=== PATIENT | male | born 1965 | race Caucasian/White ===

== ENCOUNTER 2019-11-30 11:42 | Outpatient (CLI) | payer BC, SELFPAY ==
--- NOTE | ~2019-11-30 | XR_ITS ---
EXAMINATION:XR_CERV2-3V_CR DATE: 11/30/2019 12:14 INDICATION: Neck pain TECHNIQUE: AP, lateral, lateral swimmers and odontoid views of the cervical spine are provided. COMPARISON: None FINDINGS: There are 2 mm of retrolisthesis of C3 on C4. The odontoid is intact. No fracture is identi fied. The vertebral body heights are maintained. There is moderate loss of intervertebral disc space height from C3-4 through C7-T1. There is moderate multilevel facet and uncovertebral joint osteoarthr itis. Prevertebral soft tissues are normal. IMPRESSION: 1. Moderate cervical spondylosis without acute findings. Reviewed, dictated and finalized at location A.
== END 2019-11-30 11:43 | disposition home or self-care (01) ==
LOC: ANHIMG 11:52
PROVIDERS: PCP Internal Medicine; Visit Provider Internal Medicine
DX: M47.892 Other spondylosis, cervical region (principal)
CPT/HCPCS: 72040

== ENCOUNTER 2019-12-19 16:48 | Outpatient (CLI) | payer BC, SELFPAY ==
--- NOTE | ~2019-12-19 | MR_ITS ---
EXAMINATION: MR cervical spine wo con DATE: 12/19/2019 17:42 INDICATION: Cervical radiculopathy. TECHNIQUE: Magnetic resonance imaging (MRI) of the cervical spine was performed without intravenous c ontrast. Sequences included sagittal T2-weighted FSE, sagittal STIR FSE, sagittal T1-weighted FSE, ax ial MERGE, and axial T2-weighted FSE. COMPARISON: None FINDINGS: There is kyphosis of cervical spine. There is a chronic compression fracture of T3. There i s mildly decreased disc height from C3-C4 through C5-C6 and moderately decreased disc height at C6-C7 . The spinal cord signal intensity is normal. The following disc levels are specifically discussed: C2-C3: The disc does not extend beyond the endplate margin. There is moderate left uncovertebral join t osteoarthritis. There is mild right and severe left facet joint osteoarthritis. There is moderate l eft neural foraminal stenosis. There is no central canal stenosis. C3-C4: The disc is bulging. There is severe bilateral uncovertebral joint osteoarthritis. There is mi ld bilateral facet joint osteoarthritis. There is moderate bilateral neural foraminal stenosis. There is mild central canal stenosis. C4-C5: The disc is bulging. There is severe bilateral uncovertebral joint osteoarthritis. There is mi ld bilateral facet joint osteoarthritis. There is moderate bilateral neural foraminal stenosis. There is mild central canal stenosis with ventral indentation of spinal cord. C5-C6: The disc is bulging. There is severe bilateral uncovertebral joint osteoarthritis. There is mi ld bilateral facet joint osteoarthritis. There is moderate right and severe left neural foraminal nahun nosis. There is mild central canal stenosis. C6-C7: The disc is bulging. There is severe bilateral uncovertebral joint osteoarthritis. There is mi ld bilateral facet joint osteoarthritis. There is moderate bilateral neural foraminal stenosis. There is mild central canal stenosis. C7-T1: The disc does not extend beyond the endplate margin. There is no uncovertebral joint osteoarth ritis. There is severe bilateral facet joint osteoarthritis. There is mild bilateral neural foraminal stenosis. There is no central canal stenosis. IMPRESSION: 1. Severe cervical spondylosis. Reviewed, dictated and finalized at location A.
== END 2019-12-19 16:49 | disposition home or self-care (01) ==
PROVIDERS: PCP Internal Medicine; Visit Provider Nurse Practitioner Adult Health
DX: M47.22 Other spondylosis with radiculopathy, cervical region (principal)
CPT/HCPCS: 72141

== ENCOUNTER → 2020-02-09 13:03 | Outpatient (CLI) | payer BC, SELFPAY ==
--- NOTE | ~2020-02-09 | XR_ITS ---
XR hand RT min 3V, XR wrist RT min 3V 02/09/2020 13:35 Indication: Right hand and wrist pain Procedure: 3 views right hand and 4 views right wrist Comparison: No prior studies for comparison. Findings: There is osteoarthritis of the radiocarpal, triscaphe, first carpometacarpal, first CMC naty nts. No erosive changes. No acute fracture or traumatic malalignment. No focal soft tissue abnormalit y. No radiopaque foreign bodies. Impression: 1: Mild-moderate polyarticular osteoarthritis. Reviewed, dictated and finalized at location A. Impression: 1: Mild-moderate polyarticular osteoarthritis. Impression: 1: Mild-moderate polyarticular osteoarthritis.
--- NOTE | ~2020-02-09 | XR_ITS ---
XR finger 1st RT min 2V DATE: 02/09/2020 13:35 INDICATION: Right hand pain TECHNIQUE: 3 views of right first digit COMPARISON: None FINDINGS: There is osteoarthritis at the first carpometacarpal joint. No fracture, dislocation, perio steal reaction or bone destruction is evident. IMPRESSION: Osteoarthritis at the first carpometacarpal joint Reviewed, dictated and finalized at location A.
== END ==
PROVIDERS: Visit Provider Nurse Practitioner Adult Health
DX: M19.041 Primary osteoarthritis, right hand (principal); M19.031 Primary osteoarthritis, right wrist
CPT/HCPCS: 73110; 73130; 73140

== ENCOUNTER 2022-03-23 13:01 | Emergency (ER) | payer BC, SELFPAY ==
--- NOTE | ~2022-03-23 | CT_ITS ---
EXAMINATION: CT BRAIN W/O DATE: 03/23/2022 13:42 INDICATION: Head injury. Loss of consciousness. TECHNIQUE: Computed tomography (CT) of the head was performed without intravenous contrast. The dose- length product was 605.33 mGy-cm. Automated exposure control and iterative reconstruction technique were employed. COMPARISON: No prior studies for comparison. FINDINGS: Normal brain parenchymal volume for age. Normal sanford-white differentiation. No acute intrac ranial hemorrhage, infarction, mass or mass effect. No ventriculomegaly or midline shift. Midline sagittal images demonstrate a normal corpus callosum, c raniovertebral junction and sella turcica. Basilar cisterns are patent. Paranasal sinuses and mastoids are pneumatized. No depressed skull fractures. IMPRESSION: 1. No acute intracranial abnormality. Reviewed, dictated and finalized at location B.
--- NOTE | ~2022-03-23 | CT_ITS ---
EXAMINATION: CT cervical spine wo con DATE: 03/23/2022 13:42 INDICATION: Head injury. Neck pain. TECHNIQUE: Computed tomography (CT) of the cervical spine was performed without intravenous contrast. The dose-length product was 449 mGy-cm. Automated exposure control and iterative reconstruction tech nique were employed. COMPARISON: None FINDINGS: Straightening of cervical lordosis. There is degenerative disc disease at C3-4 to C6-7. Odo ntoid process is normal. There is multilevel uncinate and facet hypertrophy. Lung apices are normal. No acute fracture or traumatic malalignment. No evidence for perched facet. Craniovertebral junction is normal. IMPRESSION: 1. No acute fracture. 2: Severe cervical spondylosis. Reviewed, dictated and finalized at location B.
[2022-03-23 13:10] VITALS: BP 146/84; PULSE 73; RESP 16; TEMP 37; O2SAT 98
--- NOTE | 2022-03-23 13:15 | PC.NURSE ---
COLLEEN Gimenez notified of patient's presentation and signs and symptoms. Per Ammy via verbal order read-back, order CT brain.
--- NOTE | 2022-03-23 13:35 | ED.HEATRA ---
HPI - Head Injury General Chief complaint: Head Injury Stated complaint: head injury Time Seen by Provider: 03/23/22 13:23 History of Present Illness HPI Narrative: Patient is a 56-year-old male here for evaluation after head injury today. Patient states that he was bent over under his workbench when an object fell off of the workbench onto the back of his head. He denies loss of consciousness. States that he has had a posterior head pain since the accident. Denies changes to his vision, nausea or vomiting, seizure-like activity, blood thinner use. Related Data Allergies Allergy/AdvReac Type Severity Reaction Status Date / Time No Known Allergies Allergy Unverified 05/13/18 07:16 Review of Systems Review of Systems: Gen: Denies fevers or chills Eyes: Denies eye pain or visual change ENT: Denies congestion Respiratory: Denies shortness of breath or cough CV: Denies chest pain or palpitations GI: Denies abdominal pain nausea, emesis or diarrhea : denies burning, urgency, frequency or hematuria Musculoskeletal: Denies back pain or muscle pain Neuro: Reports posterior head pain. Denies numbness, tingling, weakness or focal weakness Skin: Denies rash Except as documented, all other systems reviewed and negative PMFSH Social History Social History (Updated 08/12/20 @ 15:02 by Ria Randhawa MA) Years smoked: 4 Smoking status: Current every day smoker Tobacco type: e-cigarettes/vaping Alcohol intake: current Substance use: never Exam Narrative: APPEARANCE: Well appearing, no pain in distress, well-nourished. Head: No obvious trauma to head. EYES: PERRLA/EOMI, conjunctivae clear NOSE: No nasal drainage EARS: External ear normal in appearance THROAT: Oropharynx is clear. Mucous membranes are moist. NECK: Tender to palpation along upper cervical spine. Supple. No adenopathy, no masses. RESPIRATORY: Airway patent, respirations nonlabored. Clear to auscultation bilaterally, no rales, rhonchi, wheezing. CARDIOVASCULAR: Regular rate and rhythm without murmurs, rubs, or gallops. ABDOMINAL: Normoactive bowel sounds. Soft, nontender, nondistended. No rebound tenderness or guarding. MUSCULOSKELETAL: Extremities are warm and well-perfused. Moves all extremities well. No edema. NEURO: Cranial nerves II through XII intact. Normal speech. No focal neurologic deficits. SKIN: Skin is warm and dry. No rashes. PSYCHIATRIC: Normal affect/mood. Course Vital Signs Vital signs: Vital Signs Temperature 98.6 F 03/23/22 13:10 Pulse Rate 73 03/23/22 13:10 Respiratory Rate 16 03/23/22 13:10 Blood Pressure 146/84 H 03/23/22 13:10 Pulse Oximetry 98 03/23/22 13:10 Oxygen Delivery Room Air 03/23/22 13:10 Temperature 98.6 F 03/23/22 13:10 Pulse Rate 73 03/23/22 13:10 Respiratory Rate 16 03/23/22 13:10 Blood Pressure 146/84 H 03/23/22 13:10 Pulse Oximetry 98 03/23/22 13:10 Oxygen Delivery Room Air 03/23/22 13:20 MDM - Head Injury MDM Narrative Medical decision making narrative: 56-year-old male here for evaluation of posterior headache after getting hit in the head with an object earlier today. No loss of consciousness. Work-up in the ED is reassuring, his head CT and C-spine CT are without acute findings. He does have cervical spondylosis which I informed him of when he was aware of. Feel patient is appropriate for discharge at this time as he has not had no altered mental status, he is not on blood thinners, he has not had seizure-like activity. He will be discharged home to follow-up with his primary care provider. Discharge Plan Discharge Clinical Impression: Concussion Patient Disposition: Home, Self-Care Condition: Stable Instructions: Antibiotic Form, Head Injury (ED) Additional Instructions: Your head CT and C-spine CT are reassuring today. It is possible you are suffering from a concussion. Follow-up with your primary care provider next week. Please retu
--- NOTE | 2022-03-23 13:45 | PC.NURSE ---
Patient off unit to CT.
== END 2022-03-23 14:41 | disposition home or self-care (01) ==
PROVIDERS: Emergency Provider Emergency Medicine; PCP Internal Medicine
DX: S06.0X0A Concussion without loss of consciousness, initial encounter (principal); F17.290 Nicotine dependence, other tobacco product, uncomplicated; W20.8XXA Other cause of strike by thrown, projected or falling object, initial encounter
CPT/HCPCS: 70450; 72125; 99284

== ENCOUNTER → 2022-12-11 10:34 | Outpatient (CLI) | payer BC, SELFPAY ==
--- NOTE | ~2022-12-11 | XR_ITS ---
EXAMINATION: XR shoulder RT min 2V INDICATION: Right shoulder pain TECHNIQUE: Four views of the right shoulder are submitted. COMPARISON: None FINDINGS: Normal alignment. No fracture. There is moderate osteoarthritis of the glenohumeral and acr omioclavicular joints. Soft tissues are unremarkable. IMPRESSION: 1. Osteoarthritis without acute osseous abnormality. Reviewed, dictated and finalized at location B.
== END ==
PROVIDERS: PCP Family Medicine; Visit Provider Family Medicine
DX: M19.011 Primary osteoarthritis, right shoulder (principal)
CPT/HCPCS: 73030

== ENCOUNTER 2022-12-11 10:45 | Outpatient (CLI) | payer BC, SELFPAY ==
[2022-12-11 19:40] LABS: Alanine Aminotransferase 30 U/L (6-50); Albumin Level 4.5 g/dL (3.5-5.1); Alkaline Phosphatase 88 U/L (38-126); Anion Gap 5 mmol/L (8-16); Aspartate Amino Transferase 36 U/L (17-59); Bilirubin,Total 0.8 mg/dL (0.2-1.3); Blood Urea Nitrogen 20 mg/dL (9-20); Calcium 9.3 mg/dL (8.4-10.2); Carbon Dioxide 27 mmol/L (22-30); Chloride 108 mmol/L (98-107); Cholesterol 319 mg/dL (0-200); Estimated Glomerular Filt Rate > 60; Glucose 104 mg/dL (65-110); HDL Direct 45 mg/dL; Potassium 4.1 mmol/L (3.4-5.0); Sodium 140 mmol/L (137-145); Triglycerides 257 mg/dL (<150)
[2022-12-11 19:51] LABS: LDL Cholesterol Direct 182 mg/dL
== END 2022-12-11 10:46 | disposition home or self-care (01) ==
LOC: ANHGOSHLAB 10:47
PROVIDERS: PCP Family Medicine; Visit Provider Family Medicine
DX: Z13.220 Encounter for screening for lipoid disorders (principal); Z13.228 Encounter for screening for other metabolic disorders; Z12.5 Encounter for screening for malignant neoplasm of prostate
CPT/HCPCS: 36415; 80053; 80061; 84153; G0103

== ENCOUNTER → 2023-02-26 16:05 | Outpatient (CLI) | payer BC, SELFPAY ==
--- NOTE | ~2023-02-26 | XR_ITS ---
EXAMINATION: XR shoulder LT min 2V INDICATION: Left shoulder pain TECHNIQUE: Four views of the left shoulder are submitted. COMPARISON: None FINDINGS: Normal alignment. No fracture. There is moderate osteoarthritis of the acromioclavicular an d glenohumeral joints. Soft tissues are unremarkable. IMPRESSION: 1. No acute osseous abnormality. Reviewed, dictated and finalized at location F.
== END ==
PROVIDERS: PCP Family Medicine; Visit Provider Family Medicine
DX: M25.512 Pain in left shoulder (principal)
CPT/HCPCS: 73030

== ENCOUNTER → 2023-03-18 12:35 | Outpatient (CLI) | payer BC, SELFPAY ==
--- NOTE | ~2023-03-18 | MR_ITS ---
MRI of the right shoulder Technique: Axial proton-density fat-sat images, coronal proton density fat-sat and T2 fat-sat images, and sagittal T1-weighted and T2 fat-sat images were acquired. Clinical History: Pain Findings: There is severe AC joint degenerative change. Coracoclavicular, coracoacromial, and coracoh umeral ligaments appear to remain intact. There is evidence of prior rotator cuff repair surgery, with suture anchors at the humeral head/great er tuberosity. Infraspinatus tendon is intact, without partial or full-thickness tear. There is focal probable full-thickness versus high-grade articular surface partial tear at the central portion of t he supraspinatus tendon, with the area of tear measuring 9 x 9 mm. Subscapularis tendon is intact. Te ndon of the long head of the biceps is intact. There is probable mild degenerative attenuation of the superior labrum without discrete, detached lab ral tear. No significant degenerative change or effusion of the glenohumeral joint. Inferior glenohumeral ligam ent is intact. There is minimal fluid in the subacromial/subdeltoid bursa. No muscle atrophy or edema . Impression: Evidence of prior rotator cuff repair surgery. 9 x 9 mm area of recurrent high-grade partial versus f ull-thickness tearing at the central portion of the supraspinatus tendon. Mild degenerative attenuation of the superior labrum. Advanced degenerative change of the AC joint. Reviewed, dictated and finalized at [facility]. Impression: Evidence of prior rotator cuff repair surgery. 9 x 9 mm area of recurrent high- grade partial versus full-thickness tearing at the central portion of the supra spinatus tendon. Mild degenerative attenuation of the superior labrum. Advanced degenerative change of the AC joint.
== END ==
PROVIDERS: PCP Family Medicine; Visit Provider Orthopaedic Surgery
DX: M19.011 Primary osteoarthritis, right shoulder (principal)
CPT/HCPCS: 73221

== ENCOUNTER 2023-06-11 12:30 | Outpatient (CLI) | payer BC, SELFPAY ==
[2023-06-11 19:49] LABS: Cholesterol 193 mg/dL (0-200); HDL Direct 46 mg/dL; Triglycerides 154 mg/dL (<150)
[2023-06-11 20:00] LABS: LDL Cholesterol Direct 104 mg/dL
== END 2023-06-11 12:31 | disposition home or self-care (01) ==
LOC: ANHGOSHLAB 12:33
PROVIDERS: PCP Family Medicine; Visit Provider Family Medicine
DX: E78.2 Mixed hyperlipidemia (principal)
CPT/HCPCS: 36415; 80061

== ENCOUNTER 2023-07-16 09:32 | Outpatient (CLI) | payer BC, SELFPAY ==
--- NOTE | 2023-07-16 10:04 | ECG_ITS ---
Measurements Intervals [place] Rate: 54 P: 47 [place]: 154 QRS: -9 QRSD: 92 T: 7 QT: 426 QTc: 407 Interpretive Statements SINUS BRADYCARDIA CONSIDER PREVIOUS INFERIOR WALL DE ABNORMAL ECG NO PREVIOUS ECG AVAILABLE FOR COMPARISON Electronically Signed On 07-16-2023 15:20:54 MACHINE BUFFER by Simba Negrete M.D.
[2023-07-16 10:18] LABS: Hematocrit 39.7 % (42.0-52.0); Hemoglobin 13.1 g/dL (14.0-18.0); Mean Corpuscular Volume 87.8 fl (80-100); Mean Platelet Volume 9.9 fl (7.4-10.4); Platelet Count Result 152 k/mm3 (150-375); Red Blood Count 4.52 M/mm3 (4.6-6.20); Red Cell Distribution Width 12.5 % (11.5-14.5); White Blood Count 6.6 K/mm3 (4.5-10.0)
[2023-07-16 10:41] LABS: Alanine Aminotransferase 29 U/L (6-50); Albumin Level 3.9 g/dL (3.5-5.1); Alkaline Phosphatase 87 U/L (38-126); Anion Gap 4 mmol/L (8-16); Aspartate Amino Transferase 36 U/L (17-59); Bilirubin,Total 0.7 mg/dL (0.2-1.3); Blood Urea Nitrogen 22 mg/dL (9-20); Calcium 8.9 mg/dL (8.4-10.2); Carbon Dioxide 28 mmol/L (22-30); Chloride 110 mmol/L (98-107); Estimated Glomerular Filt Rate > 60; Glucose 134 mg/dL (65-110); Potassium 3.6 mmol/L (3.4-5.0); Sodium 142 mmol/L (137-145)
== END 2023-07-16 09:33 | disposition home or self-care (01) ==
PROVIDERS: PCP Family Medicine
DX: M75.101 Unspecified rotator cuff tear or rupture of right shoulder, not specified as traumatic (principal); R94.31 Abnormal electrocardiogram [ECG] [EKG]
CPT/HCPCS: 36415; 80053; 85027; 93005

== ENCOUNTER 2023-09-26 15:48 | Observation (INO) | payer BC, SELFPAY ==
--- NOTE | ~2023-09-26 | CT_ITS ---
EXAMINATION: CT brain wo con DATE: 09/26/2023 16:41 INDICATION: Dizziness. TECHNIQUE: Computed tomography (CT) of the head was performed without intravenous contrast. The mA wa s adjusted according to patient size. Iterative reconstruction technique was employed. The dose-lengt h product was 681.00 mGy-cm. COMPARISON: Head CT 03/23/2022 FINDINGS: There is no intracranial hemorrhage, acute infarction, or abnormal intracranial mass lesion . The ventricles are normal in size. There is mild mucosal thickening in the paranasal sinuses. The o rbits are normal. The mastoid air cells are normal. IMPRESSION: 1. Normal brain. Reviewed, dictated and finalized at location E. IMPRESSION: 1. Normal brain.
--- NOTE | ~2023-09-26 | MR_ITS ---
MRI of the brain Clinical History: Vertigo Technique: Axial and sagittal T1-weighted images were acquired. These were followed by axial T2-weigh karolina, diffusion weighted, gradient, and FLAIR images. Following intravenous administration of 15 cc Mu ltiHance gadolinium, T1-weighted fat-sat imaging was performed in the axial and coronal planes. Findings: There is no acute infarct, intracranial hemorrhage or mass lesion. There are mild chronic m icrovascular ischemic changes in the periventricular white matter bilaterally. Ventricles and subarachnoid spaces are unremarkable. Orbits are unremarkable. Paranasal sinuses and m astoid air cells are clear. Major intracranial flow voids are intact. Sagittal midline structures are intact. No abnormal postcontrast enhancement identified. IMPRESSION: Mild chronic microvascular ischemic changes, otherwise unremarkable exam. Reviewed, dictated and finalized at location .
[2023-09-26 15:49] VITALS: BP 134/80; PULSE 64; RESP 18; TEMP 36.4; O2SAT 100
--- NOTE | 2023-09-26 15:52 | ECG_ITS ---
SEE SCANNED COPY FOR CONFIRMED REPORT MTDD
--- NOTE | 2023-09-26 16:02 | ED.DIZZY ---
HPI - Dizziness General Chief Complaint: Dizziness Stated Complaint: n/v/ Time Seen by Provider: 09/26/23 15:55 Source: patient Mode of arrival: ambulatory Limitations: no limitations History of Present Illness HPI Narrative: 57 years old white male with history of hyperlipidemia, workup this morning, yawning and stretching in bed suddenly everything started spinning, worse with any movement, slightly better lying down flat. Associated with nausea and vomiting at least twice prior to arrival by private car. He denies any fever, chills, chest pain, shortness of breath, headache or focal neuro deficit. His mom have history of vertigo Related Data Allergies Allergy/AdvReac Type Severity Reaction Status Date / Time No Known Allergies Allergy Verified 06/15/23 15:27 Review of Systems Review of Systems: All systems reviewed & are unremarkable except as noted in HPI and below PMFSH Surgical History Surgical History History of carpal tunnel surgery of right wrist History of hand surgery right side trigger ring finger History of shoulder surgery right side- scope & rtc repair Social History Social History Years smoked: 4 Smoking status: Former smoker Tobacco type: cigarettes and e-cigarettes/vaping Alcohol intake: current Alcohol use details: socially Substance use: never Do You Feel Safe in your Home?: Yes Lack of Transportation: No Lack of Food: Never True Current Housing: I Have Housing Concerned About Future Housing: No Difficulty Paying Gas/Electric Bills: No Difficulty Paying for Meds: No Currently Unemployed: No Education: High School Diploma/GED Difficulty w/ Childcare or Family Care: No Living arrangements: with family Occupation/Education: occupation 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 Musculoskeletal: Normal range of motion, nontender back Neurologic: Alert and oriented ?3, GROUNDS KEEPER is normal as tested, no gross motor deficit Course Vital Signs Vital signs: Vital Signs Temperature 36.4 C L 09/26/23 15:49 Pulse Rate 64 09/26/23 15:49 Respiratory Rate 18 09/26/23 15:49 Blood Pressure 134/80 09/26/23 15:49 Pulse Oximetry 100 09/26/23 15:49 Oxygen Delivery Room Air 09/26/23 15:49 Temperature 36.4 C L 09/26/23 15:49 Pulse Rate 59 L 09/26/23 16:09 Respiratory Rate 18 09/26/23 15:49 Blood Pressure 134/80 09/26/23 15:49 Pulse Oximetry 100 09/26/23 15:49 Oxygen Delivery Room Air 09/26/23 15:49 MDM - Dizziness MDM Narrative Medical decision making narrative: PATIENT PRESENTS WITH VERTIGO ASSOCIATED WITH NAUSEA AND VOMITING. DIFFERENTIAL DIAGNOSIS BENIGN POSITIONAL VERTIGO, VERSUS CENTRAL VERTIGO. BLOOD WORKUP SHOWED SIGNIFICANT ABNORMALITY EXCEPT POTASSIUM IS 3.3, PATIENT RECEIVED 40 MEQ P.O. PRIOR TO ADMISSION CT SCAN OF THE HEAD AND CHEST X-RAY SHOWED NO ACUTE ABNORMALITY, EKG ON ARRIVAL SHOWED NORMAL SINUS RHYTHM. IN THE ED PATIENT RECEIVED 5 MG OF VALIUM IV, 8 MG OF ZOFRAN IV AND 25 MG OF ANTIVERT P.O. W
[2023-09-26 16:09] VITALS: PULSE 59
[2023-09-26 16:13] LABS: Basophils Percent Auto 0.3 % (0.2-1.2); Eosinophils Percent Auto 0.6 % (0-4.4); Hematocrit 43.2 % (42.0-52.0); Hemoglobin 14.6 g/dL (14.0-18.0); Immature Granulocyte Absolute 0.02 K/mm3 (0.00-0.031); Immature Granulocyte Percent A 0.3 % (0-0.5); Lymphocytes Absolute Auto 2.05 K/mm3 (0.9-3.2); Lymphocytes Percent Auto 28.8 % (18.3-44.2); Mean Corpuscular HGB Conc 33.8 g/dl (32-36); Mean Corpuscular Hemoglobin 28.4 pg (26-34); Mean Platelet Volume 10.2 fl (7.4-10.4); Monocytes Absolute Auto 0.5 K/mm3 (0.1-0.6); Monocytes Percent Auto 7.6 % (2.6-8.5); Neutrophils Absolute Auto 4.5 K/mm3 (1.3-6.7); Neutrophils Percent Auto 62.4 % (45.5-73.1); Platelet Count Result 177 k/mm3 (150-375); Red Blood Count 5.14 M/mm3 (4.6-6.20); Red Cell Distribution Width 13.1 % (11.5-14.5); White Blood Count 7.1 K/mm3 (4.5-10.0)
[2023-09-26] MEDS: ONDANSETRON INJ 4 MG/2 ML VIAL 8 MG IV PUSH (16:13)
[2023-09-26] MEDS: diazePAM INJ (*CRX) 10 MG/2 ML SYRINGE 5 MG IV PUSH (16:14)
[2023-09-26] MEDS: MECLIZINE HCL 25 MG TABLET PO (16:14)
[2023-09-26 16:23] LABS: INR 0.9; Prothrombin Time 12.7 Seconds (11.1-14.7)
[2023-09-26 16:25] LABS: Alanine Aminotransferase 25 U/L (6-50); Albumin Level 4.7 g/dL (3.5-5.1); Alkaline Phosphatase 96 U/L (38-126); Anion Gap 12 mmol/L (4-12); Aspartate Amino Transferase 28 U/L (17-59); Bilirubin,Total 1.1 mg/dL (0.2-1.3); Blood Urea Nitrogen 25 mg/dL (9-20); Calcium 9.8 mg/dL (8.4-10.2); Carbon Dioxide 21 mmol/L (22-30); Chloride 106 mmol/L (98-107); Estimated CRCL calculation 84 ml/min; Estimated Glomerular Filt Rate > 60; Glucose 151 mg/dL (65-110); Potassium 3.3 mmol/L (3.4-5.0); Sodium 139 mmol/L (137-145)
[2023-09-26 16:37] LABS: Troponin I < 0.012 ng/mL (0.000-0.034)
[2023-09-26 17:22] VITALS: BP 117/80; PULSE 63; RESP 14; O2SAT 99
[2023-09-26] MEDS: POTASSIUM CHLORIDE 20 MEQ PACKET (FOR LIQUID) 40 MEQ PO (17:34)
--- NOTE | 2023-09-26 18:21 | PM.IMHP ---
H&P: HPI History of Present Illness Date/Time: 09/26/23 18:20 Chief Complaint: Dizzy. Narrative: This is a very pleasant 57-year-old with hyperlipidemia who presented to the emergency department via private vehicle for evaluation of dizziness. The patient provides the following history. He was in his usual state of health when he got up this morning. He took the dogs out to the bathroom and went back to bed to lay down for a bit longer. While stretching out in bed he suddenly developed severe vertigo associated with nausea and dry heaves. The vertigo was so bad that he could barely even open his eyes and was unable to walk in a steady fashion. His symptoms are worse with opening his eyes and any head movement, especially to the left. Symptoms did not resolve with time and he came in for evaluation. He denies headache, facial droop, difficulty speaking and swallowing, focal weakness, paresthesias, tinnitus, ear pain, aural fullness, and palpitations. In the ED: Vital signs were stable on arrival. Labs were significant for a potassium 3.3, BUN 25, creatinine 0.80, glucose 151. Brain CT showed no acute findings. He was given p.o. meclizine and IV diazepam which unfortunately did not help his symptoms much. He is being admitted in this setting for further treatment and evaluation. Review of Systems Review of Systems: 12 systems were reviewed and are negative except for as per HPI. [facility] Past Medical History Medical History Hyperlipidemia Surgical History Surgical History History of carpal tunnel surgery of right wrist History of hand surgery right side trigger ring finger History of shoulder surgery right side- scope & rtc repair Social History Social History (Updated 09/26/23 @ 21:39 by Snow Valencia PA-C) Social History: Surrogate medical decision maker: Aleena Arshad, spouse. Code status: Full code. Years smoked: 4 Smoking status: Former smoker Tobacco type: cigarettes and e-cigarettes/vaping Alcohol intake: former Alcohol use details: Social alcohol use in moderation. Substance use: never Substance use type: does not use Do You Feel Safe in your Home?: Yes Lack of Transportation: No Lack of Food: Never True Current Housing: I Have Housing Concerned About Future Housing: No Difficulty Paying Gas/Electric Bills: No Difficulty Paying for Meds: No Currently Unemployed: No Education: High School Diploma/GED Difficulty w/ Childcare or Family Care: No Living arrangements: with family Additional living arrangements comments: Lives with spouse in [place]. 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 Spiritual care concerns: No Meds Home Medications and Allergies Home Medications Medication Instructions Recorded Confirmed Type rosuvastatin 40 mg tablet 40 mg PO DAILY #90 tabs 12/14/22 09/26/23 Rx Allergies Allergy/AdvReac Type Severity Reaction Status Date / Time No Known Allergies Allergy Verified 09/26/23 18:53 Vital Signs Vital Signs - 24 hr 09/26/23 15:49 09/26/23 16:09 Temperature 97.5 F L Pulse Rate 64 59 L Respiratory Rate 18 Blood Pressure 134/80 Pulse Oximetry 100 Oxygen Delivery Room Air Exam Narrative: General: Well-developed, nontoxic-appearing male in mild distress related to vertigo. Weight: 75.8 kg. BMI: 25.4. HEENT: Normocephalic, atraumatic. PERRL, EOMI. Sclera anicteric. Oral mucosa moist. Oropharynx clear. Neck: Supple. No carotid bruits. Respiratory: Lungs are clear to auscultation bilaterally. Cardiovascular: Regular rate and rhythm with S1-S2. Gastrointestinal: Abdomen is soft, nontender, and nondistended with positive bowel sounds. Skin: Warm and dry. No rash or lesions on limited exam. Extremities: No cy
[2023-09-26 18:36] VITALS: BP 121/86; PULSE 59; RESP 14; O2SAT 99
[2023-09-26 20:00] VITALS: PULSE 56
[2023-09-26 20:13] VITALS: BP 136/76; PULSE 60; RESP 16; TEMP 36.6; O2SAT 98
[2023-09-26 20:22] VITALS: BMI 25.4
[2023-09-26] MEDS: SODIUM CHLORIDE 0.9% IV 1,000 ML 100 ML IV CONT (22:30)
[2023-09-26] MEDS: diazePAM (*CRX) 5 MG TABLET PO (22:34)
[2023-09-27] VITALS (9 sets, daily range): BP systolic 115–134; BP diastolic 73–84; PULSE 57–82; RESP 14–17; TEMP 36.3–36.7; O2SAT 96–98
[2023-09-27] MEDS: POTASSIUM CHLORIDE 20 MEQ PACKET (FOR LIQUID) 40 MEQ PO (05:38)
[2023-09-27] MEDS: ACETAMINOPHEN 325 MG TABLET 650 MG PO ×2 (05:40→12:22)
[2023-09-27 06:11] LABS: Anion Gap 7 mmol/L (4-12); Blood Urea Nitrogen 17 mg/dL (9-20); Calcium 9.5 mg/dL (8.4-10.2); Carbon Dioxide 24 mmol/L (22-30); Chloride 109 mmol/L (98-107); Estimated CRCL calculation 84 ml/min; Estimated Glomerular Filt Rate > 60; Glucose 111 mg/dL (65-110); Magnesium 2.2 mg/dL (1.6-2.3); Potassium 4.1 mmol/L (3.4-5.0); Sodium 140 mmol/L (137-145)
[2023-09-27] MEDS: MECLIZINE HCL 25 MG TABLET PO ×2 (08:39→12:21)
[2023-09-27] MEDS: ROSUVASTATIN 10 MG TABLET 40 MG PO (08:39)
--- NOTE | 2023-09-27 12:48 | PM.IMPN ---
Progress Note: A&P Assessment and Plan (1) Vertigo: Code(s): R42 - Dizziness and giddiness Status: Acute (2) Hypokalemia: Code(s): E87.6 - Hypokalemia Status: Acute (3) Hyperlipidemia: Code(s): E78.5 - Hyperlipidemia, unspecified Status: Acute Plan The patient presented to the emergency department for evaluation of severe vertigo as detailed in HPI. Labs, imaging, EKG, and all reports were personally reviewed. The sudden onset and severity is most likely indicative of a peripheral vertigo such as benign prostatic positional vertigo. Diazepam and meclizine were of little benefit however. He is unable to stand without severe vertigo and retching and he is being admitted for supportive care and closer monitoring. Posterior stroke seems less likely with his with his main risk factor being hyperlipidemia. Consider brain MRI tomorrow if no significant improvement. PT consulted for vestibular therapy. His potassium is low and will be replaced and monitored. Continue statin and; LFTs within normal limits. The rest of his home medications will be reviewed and resumed as appropriate. Findings and treatment plan were discussed with the patient. Questions were solicited and answered to satisfaction. The patient's medical management will be taken over by the hospitalist team in a.m. Subjective Date/time seen: 09/27/23 12:48 Interval history: 57-year-old with hyperlipidemia who presented to the emergency department via private vehicle for evaluation of dizziness. The patient provides the following history. He was in his usual state of health when he got up this morning. He took the dogs out to the bathroom and went back to bed to lay down for a bit longer. While stretching out in bed he suddenly developed severe vertigo associated with nausea and dry heaves. The vertigo was so bad that he could barely even open his eyes and was unable to walk in a steady fashion. Exam Narrative: General: Well-developed, nontoxic-appearing male in mild distress related to vertigo. Weight: 75.8 kg. BMI: 25.4. HEENT: Normocephalic, atraumatic. PERRL, EOMI. Sclera anicteric. Oral mucosa moist. Oropharynx clear. Neck: Supple. No carotid bruits. Respiratory: Lungs are clear to auscultation bilaterally. Cardiovascular: Regular rate and rhythm with S1-S2. Gastrointestinal: Abdomen is soft, nontender, and nondistended with positive bowel sounds. Skin: Warm and dry. No rash or lesions on limited exam. Extremities: No cyanosis, clubbing, or edema. Radial and pedal pulses intact. Neurological: Alert and oriented. Cranial nerves 2-12 are grossly intact. Speech is clear. No facial asymmetry. No pronator drift. No appreciable nystagmus. Hand box tender and foot pushes equal bilaterally. Normal [id number]-[id number]. Gait not assessed. Psychiatric: Pleasant and cooperative with normal mood and affect. Judgment and insight intact. Objective Data Vital Signs Vital Signs: Vital Signs - 24 hr 09/26/23 15:49 09/26/23 16:09 09/26/23 18:36 Temperature 36.4 C L Pulse Rate 64 59 L 59 L Respiratory Rate 18 14 Blood Pressure 134/80 121/86 Pulse Oximetry 100 99 Oxygen Delivery Room Air 09/26/23 17:22 09/26/23 20:13 09/26/23 20:00 Temperature 36.6 C Pulse Rate 63 60 56 L Respiratory Rate 14 16 Blood Pressure 117/80 136/76 Pulse Oximetry 99 98 Oxygen Delivery 09/26/23 20:00 09/27/23 00:00 09/27/23 01:10 Temperature 36.7 C Pulse Rate 57 L 60 Respiratory Rate 14 Blood Pressure 115/75 Pulse Oximetry 97 Oxygen Delivery Room Air 09/27/23 04:00 09/27/23 05:44 09/27/23 08:40 Temperature 36.6 C Pulse Rate 57 L 69 Respiratory Rate 16 Blood Pressure 130/80 Pulse Oximetry 96 Oxygen Delivery Room Air 09/27/23 09:37 09/27/23 11:41 Temperature 36.3 C L Pulse Rate 74 Respiratory Rate 17 Blood Pressure 129/84 Pulse Oximetry 97 Oxygen Delivery Room Air Intake/Output Intake/Out
--- NOTE | 2023-09-27 13:03 | PM.DS ---
DS: Admitting Diagnosis Discharge Date 09/27/2023 Admitting Diagnosis Dizzy DS: Discharge Diagnosis Discharge Diagnosis (1) Vertigo: Code(s): R42 - Dizziness and giddiness Status: Acute Assessment and Plan: The patient presented to the emergency department for evaluation of severe vertigo as detailed in HPI. Labs, imaging, EKG, and all reports were personally reviewed. The sudden onset and severity is most likely indicative of a peripheral vertigo such as benign prostatic positional vertigo. Diazepam and meclizine were of little benefit however. He is unable to stand without severe vertigo and retching and he is being admitted for supportive care and closer monitoring. Posterior stroke seems less likely with his with his main risk factor being hyperlipidemia. MRI was negative pt felt better ok to dc today. No complaints of ear ache or stroke symptoms. Pt had fluids and potassium supplements. pt started on antivert can continue to use prn dizziness, pt will follow with neurology clinic. MRI was negative. (2) Hypokalemia: Code(s): E87.6 - Hypokalemia Status: Acute (3) Hyperlipidemia: Code(s): E78.5 - Hyperlipidemia, unspecified Status: Acute DS: Summary Hospital Course Hospital Course: 57-year-old with hyperlipidemia who presented to the emergency department via private vehicle for evaluation of dizziness. The patient provides the following history. He was in his usual state of health when he got up this morning. He took the dogs out to the bathroom and went back to bed to lay down for a bit longer. While stretching out in bed he suddenly developed severe vertigo associated with nausea and dry heaves. The vertigo was so bad that he could barely even open his eyes and was unable to walk in a steady fashion. Mri head shows chronic changes, vitals are stable labs are stable Pt mentions vomiting and eating some bad chicken on admission ? GI related vertigo Pt feeling better after fluids ok to dc today with neurology follow up. Time Spent with Patient Time attestation: Total time spent providing and/or coordinating discharge services:40 minutes on day of DC DS: Data Data Completed and Pending Labs on day of discharge: Labs from last 24 hours 09/27/23 09/26/23 09/26/23 05:33 16:07 16:07 WBC RBC Hgb Hct MCV MCH MCHC RDW Plt Count MPV Immature Gran % (Auto) Neut % (Auto) Lymph % (Auto) Branch % (Auto) Eos % (Auto) Baso % (Auto) Lymph # (Auto) Branch # (Auto) Eos # (Auto) Baso # (Auto) Abs Immat Gran (auto) Absolute Neuts (auto) Absolute Nucleated RBC Nucleated RBC % PT INR APTT Sodium 140 Potassium 4.1 Chloride 109 H Carbon Dioxide 24 Anion Gap 7 BUN 17 Creatinine 0.80 Estim Creat Clear Calc 84 Estimated GFR > 60 Glucose 111 H Calcium 9.5 Magnesium 2.2 Total Bilirubin AST ALT Alkaline Phosphatase Troponin I Total Protein 7.0 Albumin 4.7 Cancelled 09/26/23 09/26/23 09/26/23 16:07 16:07 16:07 WBC RBC Hgb Hct MCV MCH MCHC RDW Plt Count MPV Immature Gran % (Auto) Neut % (Auto) Lymph % (Auto) Branch % (Auto) Eos % (Auto) Baso % (Auto) Lymph # (Auto) Branch # (Auto) Eos # (Auto) Baso # (Auto) Abs Immat Gran (auto) Absolute Neuts (auto) Absolute Nucleated RBC Nucleated RBC % PT INR APTT Sodium Potassium Chloride Carbon Dioxide Anion Gap BUN Creatinine Estim Creat Clear Calc Estimated GFR Glucose Calcium Magnesium Total Bilirubin AST 28 ALT 25 Cancelled Alkaline Phosphatase 96 Cancelled Troponin I < 0.012 Total Protein Cancelled Albumin 09/26/23 09/26/23 09/26/23 16:07 16:07 16:07 WBC RBC Hgb Hct MCV MCH MCHC RDW Plt Count
== END 2023-09-27 15:24 | disposition home or self-care (01) ==
LOC: ANHED 18:27 → ANH2MED 19:07
PROVIDERS: Admitting Provider Hospitalist; Emergency Provider Emergency Medicine; PCP Family Medicine; Visit Provider Family Medicine
DX: R42 Dizziness and giddiness (principal); E87.6 Hypokalemia; E78.5 Hyperlipidemia, unspecified; Z87.891 Personal history of nicotine dependence
CPT/HCPCS: 36415; 70450; 70553; 80048; 80053; 83735; 84484; 85025; 85610; 85730; 93005; 96361; 96374; 96375; 97161; 99285; A9270; A9577; G0378; J2405; J3360; J7030

== ENCOUNTER 2025-03-23 01:45 | Day surgery (SDC) | payer BC, SELFPAY ==
[2025-03-13 15:43] VITALS: BMI 26.6
--- OUTSIDE RECORDS SUMMARY | 2025-03-23 01:48 | XMS_ITS | Encounter Summary ---
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
--- OUTSIDE RECORDS SUMMARY | 2025-03-23 01:48 | XMS_ITS | Clinical Summary ---
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
[2025-03-23 13:12] VITALS: BP 118/74; PULSE 55; RESP 16; TEMP 36.4; O2SAT 100
--- NOTE | 2025-03-23 13:23 | WPDANESEPPF ---
Anes - Initial Pre Proc Eval Procedure: Operation Date: 03/23/25 14:00 Proposed Procedures p Screening Colonoscopy - Chriss Nieves MD Date/Time: 03/23/25 13:23 Surgeon: Chriss Nieves MD Pre Op Diagnosis: Screening Patient Data Age: 59 Gender: M Height: 1.73 m Weight: 76.8 kg Last Vital Signs Temp 97.6 F 03/23/25 13:12 Pulse 55 L 03/23/25 13:12 Resp 16 03/23/25 13:12 BP 118/74 03/23/25 13:12 Pulse Ox 100 03/23/25 13:12 O2 Del Method Room Air 03/23/25 13:12 Allergies Allergy/AdvReac Type Severity Reaction Status Date / Time No Known Allergies Allergy Verified 03/23/25 13:10 Home Medications ?Medication ?Instructions ?Recorded ?Confirmed ?Type metformin 500 mg tablet,extended 500 mg PO DAILY #90 tabs 02/16/25 03/23/25 Rx release 24 hr (Glucophage XR) rosuvastatin 40 mg tablet 40 mg PO DAILY #90 tabs 02/16/25 03/23/25 Rx tamsulosin 0.4 mg capsule 0.4 mg PO DAILY #90 caps 03/08/25 03/23/25 Rx trazodone 100 mg tablet 100 mg PO QHS PRN insomnia #90 tabs 03/08/25 03/23/25 Rx dextroamphetamine-amphetamine 10 10 mg PO DAILY #45 tabs 03/19/25 03/23/25 Rx mg tablet (Adderall) Patient hx anesthesia problems: none Family hx anesthesia problems: none Results Review: All pre-operative results and documents have been reviewed as part of the pre-operative evaluation. [facility] Past Medical History Medical History Nasal congestion Vertigo Surgical History Surgical History History of hand surgery right side trigger ring finger History of carpal tunnel surgery of right wrist History of shoulder surgery right side- scope & rtc repair Social History Social History Social History: Surrogate medical decision maker: Aleena Arshad, spouse. Code status: Full code. Years smoked: 4 Smoking status: Former smoker Tobacco type: cigarettes and e-cigarettes/vaping Alcohol intake: current Alcohol use details: Social alcohol use in moderation. Substance use: never Substance use type: does not use Do You Feel Safe in your Home?: Yes Lack of Transportation: No Lack of Food: Never True Current Housing: I Have Housing Concerned About Future Housing: No Difficulty Paying Gas/Electric Bills: No Difficulty Paying for Meds: No Currently Unemployed: No Education: High School Diploma/GED Difficulty w/ Childcare or Family Care: No Living arrangements: with family Additional living arrangements comments: Lives with spouse in [place]. 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 Spiritual care concerns: No Anes - Eval Final PreProcedure Day of Procedure 03/23/25 13:23 Patient weight: normal Lungs: normal air movement Airway: Mallampati scale class II and special considerations (Edentulous. ) Neurological: alert and oriented Last oral intake: >/= 8 hours ASA classification: II Emergent: no Anesthetic plan: proceed Anesthesia type and monitoring: general GIVS and standard monitoring Results Review: All pre-operative results and documents have been reviewed as part of the pre-operative evaluation. 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 Informed Consent: The patient's anesthetic plan and its attendant risks and benefits were discussed with the patient/family/POA. Questions were solicited and answers provided to the satisfaction of the patient/family/POA.
[2025-03-23] MEDS: LACTATED RINGERS 1,000 ML 150 ML IV CONT (13:25)
--- NOTE | 2025-03-23 14:23 | PM.IMHP ---
H&P: HPI History of Present Illness Date/Time: 03/23/25 14:23 Chief Complaint: Screening colonoscopy Narrative: This is the patient's 2nd screening colonoscopy. There are no GI symptoms and there is no family history of colorectal cancer. Review of Systems Review of Systems: All systems reviewed & are unremarkable except as noted in HPI and below PMFSH Past Medical History Medical History Nasal congestion Vertigo Surgical History Surgical History History of hand surgery right side trigger ring finger History of carpal tunnel surgery of right wrist History of shoulder surgery right side- scope & rtc repair Social History Social History Social History: Surrogate medical decision maker: Aleena Arshad, spouse. Code status: Full code. Years smoked: 4 Smoking status: Former smoker Tobacco type: cigarettes and e-cigarettes/vaping Alcohol intake: current Alcohol use details: Social alcohol use in moderation. Substance use: never Substance use type: does not use Do You Feel Safe in your Home?: Yes Lack of Transportation: No Lack of Food: Never True Current Housing: I Have Housing Concerned About Future Housing: No Difficulty Paying Gas/Electric Bills: No Difficulty Paying for Meds: No Currently Unemployed: No Education: High School Diploma/GED Difficulty w/ Childcare or Family Care: No Living arrangements: with family Additional living arrangements comments: Lives with spouse in [place]. 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 Spiritual care concerns: No Meds Home Medications and Allergies Home Medications ?Medication ?Instructions ?Recorded ?Confirmed ?Type metformin 500 mg tablet,extended 500 mg PO DAILY #90 tabs 02/16/25 03/23/25 Rx release 24 hr (Glucophage XR) rosuvastatin 40 mg tablet 40 mg PO DAILY #90 tabs 02/16/25 03/23/25 Rx tamsulosin 0.4 mg capsule 0.4 mg PO DAILY #90 caps 03/08/25 03/23/25 Rx trazodone 100 mg tablet 100 mg PO QHS PRN insomnia #90 tabs 03/08/25 03/23/25 Rx dextroamphetamine-amphetamine 10 10 mg PO DAILY #45 tabs 03/19/25 03/23/25 Rx mg tablet (Adderall) Allergies Allergy/AdvReac Type Severity Reaction Status Date / Time No Known Allergies Allergy Verified 03/23/25 13:10 Vital Signs Vital Signs - 24 hr 03/23/25 13:12 Temperature 97.6 F Pulse Rate 55 L Respiratory Rate 16 Blood Pressure 118/74 Pulse Oximetry 100 Oxygen Delivery Room Air Exam Const: General: cooperative and healthy appearing Resp: Effort & Inspection: normal respiratory effort and able to speak in complete sentences Auscultation: clear to auscultation bilaterally Cardio: Rate: regular rate Rhythm: regular rhythm GI: Inspection: normal to inspection GI Palp: No No hepatosplenomegaly present Auscultation: normal bowel sounds Rectal Exam: deferred Skin: General skin exam: normal color Psych: Appearance: grossly normal Mental Status: mental status grossly normal Assessment and Plan Assessment and plan (1) Screening for colon cancer: Code(s): Z12.11 - Encounter for screening for malignant neoplasm of colon Status: Acute Assessment and Plan: The patient is deemed a good candidate for the procedure. Consent signed. Will proceed.
[2025-03-23 14:45] VITALS: BP 103/70; PULSE 55; RESP 19; O2SAT 97
--- NOTE | 2025-03-23 14:46 | S_PTH ---
PATIENT: Ricci Arshad LOC: [facility] #:[id number] AGE/SX: 59/M ROOM: RE03/23/[address]: Chriss Nieves MD : 1965 BED: DIS: 03/23/2025 SPEC #: [id number] RECD: 03/26/25 07:12 STATUS: ARLEEN REQ #: [id number] YUVAL: 03/23/25 14:[address]: Chriss Nieves DEPT: [facility] Surgical RECD BY: Nisa Tadeo Tissues: A - Colon Polypectomy Procedures: Hematoxylin and Eosin Stain Gross and Microscopic Level 4
[2025-03-23 14:55] VITALS: BP 109/72; PULSE 57; RESP 16; O2SAT 98
[2025-03-23 15:05] VITALS: BP 104/79; PULSE 61; RESP 14; O2SAT 100
== END 2025-03-23 15:14 | disposition home or self-care (01) ==
PROVIDERS: Referring Provider Student in an Organized Health Care Education/Training Program; Visit Provider Internal Medicine Gastroenterology
PROC: 0DJD8ZZ Inspection of Lower Intestinal Tract, Via Natural or Artificial Opening Endoscopic (ICD-10-PCS; CPT 45378; principal; 2025-03-23 14:00)
DX: Z12.11 Encounter for screening for malignant neoplasm of colon (principal); K63.5 Polyp of colon; K57.30 Diverticulosis of large intestine without perforation or abscess without bleeding; Z87.891 Personal history of nicotine dependence
CPT/HCPCS: 45385; 82948; 88305; J2704; J7120

== ENCOUNTER 2025-04-24 09:55 | Outpatient (CLI) | payer BC, SELFPAY ==
--- OUTSIDE RECORDS SUMMARY | 2023-11-04 08:20 | XMS_ITS ---
Author Organization [facility], Address [address] [address] Care Team Providers Care Customer Service Correspondence Clerk Name Role Phone Arnaud Little Primary Care Provider Jesús Stafford [phone] ALLERGIES No Known Allergies REASON FOR VISIT 13 weeks s/p right shoulder arthroscopy, rotator cuff repair (3cm), removal of loosebodyon 08/04/23; 6 week follow up left shoulder subacromial injection, Here to discuss surgery for his left shoulder MEDICATIONS Medication SIG (Take, Route, Frequency, Duration) Notes Start Date End Date Status Diclofenac Potassium 25 MG 1 tablet with food or milk as needed Orally Four times a day Unknown Rosuvastatin Calcium 40 MG 1 tablet Oral ly Once a day for 30 day(s) Unknown oxyCODONE-Acetaminophen 5-325 MG 1 tablet as needed Orally every 4 hrs for 7 days 08/10/2023 Unknown VITAL SIGNS BMI 27.37 kg/m2 11/04/2023 Height 68 in 11/04/2023 Weight 180 lbs 11/04/2023 PROCEDURES Procedure Date Ordered Date Performed Result Body Sit e left shoulder arthroscopy 11/04/2023 11/04/2023 Pa rtial auth #[id number] cpt [id number] only Encounters Encounter Location Date Provider Diagnosis [facility] [address] [facility] [address] [place] [address] 11/04/2023 Jesús Eller Nontraumatic complet e tear of left rotator cuff M75.122 and Pre-op evaluation Z01.818 ASSESSMENTS Encounter Date Diagnosis Assessment Notes Treatment Notes Treatment Clinical Notes Section Notes 11/04/2023 Nontraumatic complete tear of left rotator cuff (ICD-10 - M75.122) We discussed the treatment options and he wishes to proceed with surgery. The recommended procedure is a left shoulder arthroscopy, rotatoru cuff repair. The surgical procedure and post operative course were discussed. Surgery papers were filled out today. Questions answered 11/04/2023 Pre-op evaluation (ICD-10 - Z01.818) PLAN OF TREATMENT Treatment Notes Assessment Notes Nontraumatic complete tear o f left rotator cuff We discussed the treatment options and h e wishes to proceed with surgery. The recommended procedure is a left shoulder arthroscopy, rotatoru cuff repair. The surgical procedure and post operative course were discussed. Surgery papers were filled out today. Questions answered Pending Test Test Name Order Date CBC 11/04/2023 EKG 11/04/2023 CMP 11/04/2023 Next Appt Details Follow Up: SURGERY, Reason: Progress Notes * Examination Category Sub-Category Detail Notes Category Not es MRI Imaging Studies: SHOULDER MRI: MRI images and report were both reviewed today, Please see the report for full details. Partial supraspinatus tear and biceps tendinopathy. : Shoulder: Passive forward elevation to 100 degrees. Incisions are well healed. Shoulder: SHOULDER: Left. INSPECTION: no atrophy, no muscle asymmetry, no scapular winging. PALPATION: no tenderness. ACTIVE SHOULDER RANGE OF MOTION: forward flexion 150, abduction/external rotation to 90 and internal rotation to low lumbar. NECK RANGE OF MOTION: full range of motion, no motor or sensory deficits in either upper extremity. STRENGTH TESTING (OUT OF 5): 4/5 all rotator cuff groups. STABILITY TESTS: no instability to range of motion. UPPER EXTREMITY EXAM: no apparent abnormalities. TESTS: posititve impingement positive Hawkin's, positive drop arm X-Ray: SHOULDER X-RAY: LEFT: , no acute or chronic abnormalities. History and Physical Notes * HPI (History of Present Illness) Category Sub-Category Detail Notes Category Not es . Ricci is seen today in follow up for both of his shoulders. He is 13 weeks s/p right shoulder arthroscopy, rotator cuff repair (3cm), removal of loose body on 08/04/23. He was last evaluated on 10/14/23, at which time he reported recurrent pain of his left shoulder. He presents today to discuss next steps for his left shoulder. He had some temporary relief from the previous left shoulder injection. He is very frustrated with the left shoulder, and would like to proceed with surgery on the left. We have discussed ashely previously, and he agreed to wait until now before proceeding with left shoulder surgery.
--- OUTSIDE RECORDS SUMMARY | 2023-11-17 05:30 | XMS_ITS ---
Author Organization [facility], Address [address] [place] [address] Care Team Providers Care Cell Room Supervisor Name Role Phone Arnaud Little Primary Care Provider Jesús Stafford [phone] REASON FOR VISIT SURGERY- LEFT SHOULDER ARTHROSCOPY, DERIDEMENT, POSSIBLE ROTATOR CUFF REPAIR MEDICATIONS Medication SIG (Take, Route, Frequency, Duration) Notes Start Date End Date Status Rosuvastatin Calcium 40 MG 1 tablet Oral ly Once a day for 30 day(s) Unknown Diclofenac Potassium 25 MG 1 tablet with food or milk as needed Orally Four times a day Unknown oxyCODONE-Acetaminophen 5-325 MG 1 tablet as needed Orally every 4 hrs for 7 days 08/10/2023 Unknown oxyCODONE-Acetaminophen 5-325 MG 1 tablet as needed Orally 4 hours for 7 days 11/16/2023 Active PROBLEMS Problem Type ICD Code Onset Dates Problem Status W/U Status Risk SNOMED Code Notes Problem Incomplete tear of left rotator cuff (M75.112) Active confirmed Partial thickness rotator cuff tear ([id number]) Encounters Encounter Location Date Provider Diagnosis [facility] - Outpatient [address] [place] [address] 11/17/2023 Jesús Eller Superior labrum ihuvypkl-or-krfrgwab r (SLAP) tear of left shoulder S43.432A ; Incomplete tear of left rotator cuff M75.112 and Chondromalacia, 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
--- OUTSIDE RECORDS SUMMARY | 2023-11-17 05:30 | XMS_ITS ---
Author Organization [facility] Address [address] [place] [address] Care Team Providers Care Filter Tank Tender Name Role Phone Arnaud Little Primary Care Provider Jesús Stafford Unavailable [phone] Trish Guerrero Unavailable [phone] REASON FOR VISIT SURGERY- LEFT SHOULDER ARTHROSCOPY, DERIDEMENT, POSSIBLE ROTATOR CUFF REPAIR Encounters Encounter Location Date Provider Diagnosis [facility] - Outpatient [address] [place] [address] 11/17/2023 Trish Guerrero Superior labrum egwkldna-vm-ozxcwss or (SLAP) tear of left shoulder S43.432A ; Incomplete tear of left rotator cuff M75.112 and Chondromalacia, 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
--- OUTSIDE RECORDS SUMMARY | 2023-11-17 05:40 | XMS_ITS ---
Author Organization [facility] Address [address] [place] [address] Care Team Providers Care Insulation Power Unit Tender Name Role Phone Arnaud Little Primary Care Provider Jesús Stafford [phone] REASON FOR VISIT DME- [place]INGSHOT Encounters Encounter Location Date Provider Diagnosis [facility] - Outpatient [address] [place] [address] 11/17/2023 Jesús Eller PLAN OF TREATMENT No Information
--- OUTSIDE RECORDS SUMMARY | 2023-11-19 03:37 | XMS_ITS ---
Author Organization [facility] Address [address] [facility] [address] [place] [address] Care Team Providers Care Associate Designer Name Role Phone Arnaud Little Primary Care Provider Jesús Stafford [phone] REASON FOR VISIT Call back Encounters Encounter Location Date Provider Diagnosis [facility] [address] [facility] [address] [place] [address] 11/19/2023 Jesús Eller PLAN OF TREATMENT No Information
--- OUTSIDE RECORDS SUMMARY | 2023-12-07 07:40 | XMS_ITS ---
Author Organization [facility] Address [address] [address] Care Team Providers Care Bath Mix Operator Name Role Phone Arnaud Little Primary Care Provider Jesús Stafford [phone] ALLERGIES No Known Allergies REASON FOR VISIT 20 days s/p left shoulder arthroscopy, debridement, rotator cuff tea, biceps tenodesis and microfracture of the glenoid on 11/17/23 MEDICATIONS Medication SIG (Take, Route, Frequency, Duration) Notes Start Date End Date Status Rosuvastatin Calcium 40 MG 1 tablet Oral ly Once a day for 30 day(s) Unknown oxyCODONE-Acetaminophen 5-325 MG 1 tablet as needed Orally 4 hours for 7 days 11/09/2023 Unknown oxyCODONE-Acetaminophen 5-325 MG 1 tablet as needed Orally every 4 hrs for 7 days 08/10/2023 Unknown Diclofenac Potassium 25 MG 1 tablet with food or milk as needed Orally Four times a day Unknown VITAL SIGNS BMI 27.37 kg/m2 12/07/2023 Height 68 in 12/07/2023 Weight 180 lbs 12/07/2023 Encounters Encounter Location Date Provider Diagnosis [facility] [address] [facility] [address] [place] [address] 12/07/2023 Jesús Eller [facility] Z47.89 ASSESSMENTS Encounter Date Diagnosis Assessment Notes Treatment Notes Treatment Clinical Notes Section Notes 12/07/2023 [facility] (ICD-10 - Z47.89) ___ will go to therapy today to learn home exercise program. Pendulum exercises are to be continued. Restrictions were discussed. Patient was specifically reminded of no active abduction and forward flexion. Patient instructed they may bring their hands to their face, but are to avoid external rotation or reaching above the level of the face. Sling may be discontinued as pain permits. All questions were answered. Patient was instructed to call with any concerns. Follow up in one month PLAN OF TREATMENT Treatment Notes Assessment Notes [facility] ___ will go to ther dani today to learn home exercise program. Pendulum exercises are to be continued. Restrictions were discussed. Patient was specifically reminded of no active abduction and forward flexion. Patient instructed they may bring their hands to their face, but are to avoid external rotation or reaching above the level of the face. Sling may be discontinued as pain permits. All questions were answered. Patient was instructed to call with any concerns. Follow up in one month Next Appt Details Follow Up: 4 Weeks, Reason: Progress Notes * Examination Category Sub-Category Detail Notes Category Not es Shoulder Patient is wear ing arm sling. Incisions are benign and are clean, dry, and intact. Distal neurovascular exam is intact. History and Physical Notes * HPI (History of Present Illness) Category Sub-Category Detail Notes Category Not es . Ricci is seen today in follow up 3 weeks s/p left shoulder arthroscopy, debridement, rotator cuff tea, biceps tenodesisand microfracture of the glenoid on 11/17/23
--- OUTSIDE RECORDS SUMMARY | 2024-01-04 07:05 | XMS_ITS ---
Author Organization [facility] Address [address] [address] Care Team Providers Care Vba Programmer Name Role Phone Arnaud Little Primary Care Provider Jesús Stafford [phone] ALLERGIES No Known Allergies REASON FOR VISIT 7 weeks s/p left shoulder arthroscopy, debridement, rotator cuff, biceps tenodesis and microfracture of the glenoid [...] 4 hours for 7 days 11/09/2023 Unknown VITAL SIGNS BMI 27.37 kg/m2 01/04/2024 Height 68 in 01/04/2024 Weight 180 lbs 01/04/2024 Encounters Encounter Location Date Provider Diagnosis [facility] [address] [facility] [address] [place] [address] 01/04/2024 Jesús Eller [facility] Z47.89 ASSESSMENTS Encounter Date Diagnosis Assessment Notes Treatment Notes Treatment Clinical Notes Section Notes 01/04/2024 [facility] (ICD-10 - Z47.89) Continue home exercise program. Continue strengthening exercises. All questions answered. Patient was instructed to call with any concerns. PLAN OF TREATMENT Treatment Notes Assessment Notes [facility] Continue home exerc ise program. Continue strengthening exercises. All questions answered. Patient was instructed to call with any concerns. Next Appt Details Follow Up: 4 Weeks, Reason: Progress Notes * Examination Category Sub-Category Detail Notes Category Not es Shoulder Active Forward Elevation: , Abduction/External rotation: , Active Internal Rotation Posteriorly: History and Physical Notes * HPI (History of Present Illness) Category Sub-Category Detail Notes Category Not es Shoulder Ricci is seen today in follow up s/p right shoulder arthroscopy, rotator cuff repair (3cm), removal of loose body on 08/04/23
[2025-04-24 10:40] LABS: Hemoglobin A1C 5.9 % (<5.7)
[2025-04-24 10:41] LABS: Alanine Aminotransferase 44 U/L (6-50); Albumin Level 4.1 g/dL (3.5-5.1); Alkaline Phosphatase 69 U/L (38-126); Anion Gap 3 mmol/L (4-12); Aspartate Amino Transferase 57 U/L (17-59); Bilirubin,Total 0.6 mg/dL (0.2-1.3); Blood Urea Nitrogen 19 mg/dL (9-20); Calcium 9.1 mg/dL (8.4-10.2); Carbon Dioxide 27 mmol/L (22-30); Chloride 109 mmol/L (98-107); Cholesterol 177 mg/dL (0-200); Estimated Glomerular Filt Rate > 60; Glucose 104 mg/dL (65-110); HDL Direct 63 mg/dL; Potassium 4.0 mmol/L (3.4-5.0); Sodium 139 mmol/L (137-145); Total Protein 6.9 g/dL (6.3-8.2); Triglycerides 108 mg/dL (<150)
--- OUTSIDE RECORDS SUMMARY | 2025-04-24 10:57 | XMS_ITS | Patient Health Record ---
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) Active confirmed 8642369161699122 Problem Traumatic complete tear of left rotator cuff, subsequent encounter (S46.012D) Active confirmed 30972674140606094 Problem Nontraumatic complete tear of left rotator cuff (M75.122) Active confirmed 6444011131041255 Problem Incomplete tear of left rotator cuff (M75.112) Active confirmed Partial thick ness rotator cuff tear (747157760) PLAN OF TREATMENT Pending Test Test Name Order Date CBC 11/04/2023 EKG 11/04/2023 CMP 11/04/2023 Insurance Providers Payer Name Payer Address Payer Phone Subscriber Number Group Number Insured Name Patient Relationship to Insured Coverage Start Date Coverage End Date Rita [place] [facility] [address] [place] [address] [id number] Aleena Arshad Spouse - patient is the spouse of the insured MEDICAL (GENERAL) HISTORY Surgical History Surgery Date(Month/Year)
--- OUTSIDE RECORDS SUMMARY | 2025-04-24 10:58 | XMS_ITS | Clinical Summary ---
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
--- OUTSIDE RECORDS SUMMARY | 2025-04-24 10:58 | XMS_ITS | Encounter Summary ---
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
== END 2025-04-24 09:56 | disposition home or self-care (01) ==
LOC: ANHLAB 09:56
PROVIDERS: Visit Provider Student in an Organized Health Care Education/Training Program
DX: E78.2 Mixed hyperlipidemia (principal); R73.03 Prediabetes
CPT/HCPCS: 36415; 80053; 80061; 83036